=== PATIENT | female | born 1995 | race Caucasian/White ===

== ENCOUNTER 2017-06-29 18:32 | Emergency (ER) | payer OTHER ==
[~2017-06-29] VITALS: Ht 152.4 cm; Wt 72.7 kg
[2017-06-29 18:35] VITALS: BP 143/75; PULSE 82; RESP 18; O2SAT 100
--- NOTE | 2017-06-29 21:50 | ED.REPORT ---
HPI-General Illness Date of Service Jun 29, 2017 ED Provider: Rai Johns MD The pt is a 22 y/o female with no pertinent hx who presents to the ED complaining of tingling and numbness in upper extremities bilaterally, worse on the left, onset 3 days ago. Associated sx include intermittent numbness in the feet. She denies any recent injury. She denies shortness of breath and weakness in extremities. No specific factors modify her sx. She was seen at urgent care yesterday and was told to go to the ED if sx did not improve. Her last menstrual period was 3 weeks ago. The pt started control a month ago. Nursing Notes Stated Complaint: NUMBNESS/TINGLING IN FINGERTIPS, HANDS, ARMS Chief Complaint: General Complaint Nursing Notes Reviewed: Yes Allergies: Coded Allergies: No Known Allergies (Unverified , 06/29/17) General Time Seen by MD: 21:49 Chief Complaint Other (tingling and numbness in upper extremities) Hx Obtained From: Patient Arrived By: Walk-in Sudden in Onset?: Yes Onset Occurred: 3 days ago Symptom Duration: Since onset Severity: Current: No pain currently Severity: Maximum: No pain Recent Healthcare: Recent doctor visit Similar Sx Previous: No Past Medical History Past Medical History none reported Past Surgical History none reported Smoking History Never Smoker Social History Other Social History: Good social support Ambulatory Status Independent Review of Systems Reports: tingling sensation in the upper extremities. Full Review of Systems Respiratory: Denies: Shortness of breath Neurologic: Reports: Numbness (in upper extremities and in the feet intermittently), Denies: Weakness (in extremities) Complete sys rev & neg: except as marked. Physical Exam Vital Signs Vital Signs Date Time Temp Pulse Resp B/P Pulse Ox O2 Delivery O2 Flow Rate FiO2 06/29/17 23:02 36.7 84 16 104/78 96 Room Air 06/29/17 18:35 36.7 82 18 143/75 100 Room Air Initial VS: Reviewed Neck: Supple, Non-tender, Full range of motion Respiratory: Breath sounds normal, Clear to auscultation, No respiratory distress Abdomen / GI: Soft, Non-tender, No guarding, No rebound, No distention Extremities: Vascular intact, Neuro intact, No swelling, No tenderness Skin: Warm, Dry, No cyanosis Neurologic: Alert, Oriented, Nonfocal General/Constitutional: Awake, Alert, No acute distress, Well appearing, Cooperative Head / Eyes: Atraumatic, Normocephalic, PERRL, EOMI Cardiovascular: Heart rate NL, Regular rhythm, No gallop, No rubs Heart Sounds / Murmur: Positive: Murmur present... (II/) Upper Extremities Upper Extremity / MS: Atraumatic, Full range of motion, No swelling, Non-tender , No erythema, No deformity, Neurologic intact, Vascular intact Radial and ulnar pulses intact Tricep and bicep strength 5/5 bilaterally Skin: Atraumatic, Color NL, No rash, Warm, Dry, Intact, Turgor NL, No swelling Neurologic: Oriented X3, Speech NL, No motor deficits, No sensory deficits, Gait NL Re-Eval/Medical Decision Med Decision/Clinical Course Healthy young female who recently started oral contraception, has paresthesias without weakness or other neurologic deficits. Paresthesias are intermittent. Do not find any neurologic deficit or evidence of circulatory compromise. Time of Eval: 22:11 Re-Evaluation/Progress Note: Discussed diagnosis and plan to discharge. Pt understands and agrees with the plan. F/U instruction and RTER warning given. All questions addressed Counseled Regarding: Diagnosis, Need for follow-up, When/why to return to ED Discharge & Departure Primary Impression: Paresthesias Disposition: Home Discharge Condition All VS Reviewed: Yes Condition: Stable (\) Additional Instructions: Emergency Department evaluation included interview and examination. No serious medical condition causing paresthesias (altered sensation and tingling) is found tonight. Nerve functions seem completely intact please follow-up with your primary care provider as soon as possible. We discussed stopping control pills and at this point the plan is to do so until primary care can be contacted. Use alternative contraception if control is stopped. Return emergency Department for severe headache or new onset of muscular weakness. Referrals: Soto Bernal MD (PCP) Rai Johns MD Jun 29, 2017 21:50 Iron Patten Jun 29, 2017 22:09
[2017-06-29 23:02] VITALS: BP 104/78; PULSE 84; RESP 16; O2SAT 96
== END 2017-06-29 23:03 | disposition home or self-care (01) ==
LOC: SED 18:32
DX: R20.2 Paresthesia of skin (principal)